=== PATIENT | female | born 1990 | race Caucasian/White ===

== ENCOUNTER → 2022-07-27 16:41 | Outpatient (CLI) | payer SELFPAY ==
--- NOTE | 2022-07-27 16:46 | DI.US.S_ITS ---
PROCEDURE: US RENAL COMPLETE INDICATIONS: RIGHT FLANK PAIN TECHNIQUE: Real-time scanning was performed of the kidneys and bladder, with image documentation. COMPARISON: None. FINDINGS: Kidneys: Kidneys are normal in size. Right kidney measures 11.3 cm long; left kidney measures 11.5 cm long. Right renal cortical thickness is 1.0 cm; left renal cortical thickness is 1.0 cm. Renal cortical echotexture is normal. No hydronephrosis or nephrolithiasis. No suspicious solid mass lesions. Bladder: Pre-void bladder volume is 117 mL. Post-void residual is 0 mL. Pre-void images demonstrate no intraluminal masses or stones. On pre-void images, bilateral ureteral jets are noted with color Doppler interrogation. (Of note, ureteral jets may not be detectable in up to 25% of cases due to insufficient differences in specific gravity between ureteral and bladder urine). Miscellaneous: No free pelvic fluid. IMPRESSION: Unremarkable ultrasound examination of bilateral kidneys and urinary bladder. Dictated by: Sanchez Turk M.D. on 07/28/2022 at 8:12 Approved by: Sanchez Turk M.D. on 07/28/2022 at 8:14
== END ==
PROVIDERS: Referring Provider Physician Assistant Medical; Visit Provider Physician Assistant Medical
DX: N20.0 Calculus of kidney (principal)
CPT/HCPCS: 76770

== ENCOUNTER → 2022-09-09 13:49 | Outpatient (CLI) | payer SELFPAY ==
--- NOTE | 2022-09-09 | DI.CT.S_ITS ---
PROCEDURE: CT ABDOMEN PELVIS WO CON INDICATIONS: CALCULUS OF KIDNEY/ABDOMINAL PAIN TECHNIQUE: Axial sections were acquired from the lung bases to the pubic symphysis. Coronal and sagittal reformats were performed. For radiation dose reduction, the following was used: automated exposure control, adjustment of mA and/or kV according to patient size. COMPARISON: [facility], CR, ABDOMEN 1 VIEW, 04/28/2008, 12:52. [facility], US, US RENAL COMPLETE, 07/27/2022, 16:54. [facility], CT, KIDNEY/ URETER/BLADDER, 04/28/2008, 12:49. Pelvic ultrasound, 04/28/2008. FINDINGS: Image quality: Excellent. Lung bases: Unremarkable. Heart: No significant findings. URINARY: Right Kidney: No stones or hydronephrosis. Right Ureter: No hydroureter. Left Kidney: No stones or hydronephrosis. Left Ureter: No hydroureter. Bladder: Normal wall thickness. No stones. ABDOMEN: Liver: Unremarkable. Gallbladder: Unremarkable. Biliary ducts: Unremarkable. Pancreas: Unremarkable. Spleen: Unremarkable. Adrenal Glands: Unremarkable. Stomach and Bowel: Stomach, small bowel loops, and colon are unremarkable. Peritoneum: No abnormal intraperitoneal fluid. No free air. Ventral Wall: No hernia. Abdominal Nodes: No enlarged retroperitoneal or mesenteric lymph nodes. Vessels: Aorta and inferior vena cava are normal in size. PELVIS: Pelvic Organs: There is a 3.9 x 4.1 x 3.8 cm cystic mass in the pelvis posterior to uterus at midline. Pelvic Nodes: Unremarkable. Miscellaneous: No inguinal hernias are seen. Bones: Unremarkable. IMPRESSION: 1. No discrete renal stones or ureteral stones. No hydronephrosis. 2. A 3.9 x 14.1 x 3.8 cm cystic mass posterior to uterus at midline. Differential diagnoses are a large ovarian cyst, paraovarian cyst, seroma and less likely an abscess. Recommend pelvic ultrasound for follow-up evaluation. Dictated by: Sara Soliman M.D. on 09/09/2022 at 16:47 Approved by: Sara Soliman M.D. on 09/09/2022 at 16:53
== END ==
PROVIDERS: Referring Provider Physician Assistant Medical; Visit Provider Physician Assistant Medical
DX: N20.0 Calculus of kidney (principal); R10.9 Unspecified abdominal pain; N94.89 Other specified conditions associated with female genital organs and menstrual cycle
CPT/HCPCS: 74176

== ENCOUNTER → 2022-10-25 12:24 | Outpatient (CLI) | payer OTHER, SELFPAY ==
--- NOTE | 2022-10-25 | DI.US.S_ITS ---
PROCEDURE: US PELVIC COMPLETE INDICATIONS: Unspecified ovarian cyst, unspecified side TECHNIQUE: Real-time scanning was performed of the pelvic organs, with image documentation. Additional endovaginal scanning was necessary due to incomplete visualization of the adnexal and endometrial structures by transabdominal scanning. COMPARISON: [facility], CT, CT ABDOMEN PELVIS WO CON, 09/09/2022, 14:02. [facility], US, PELVIC COMPLETE, 04/28/2008, 12:24. FINDINGS: Uterus: Uterus is anteverted and normal in size at 7.7 x 5.5 x 3.5 cm. The myometrium is heterogeneous. The endometrium measures 7 mm combined thickness. Left anterior intramural fibroid measuring 0.7 x 0.6 x 0.5 cm. Small nabothian cysts. Ovaries: The right ovary measures 6.2 x 3.6 x 2.2 cm, with a calculated ovarian volume of 26 cc. The left ovary measures 3.4 x 2.2 x 2.2 cm, with a calculated ovarian volume of 9 cc. Blood flow seen in both ovaries. The ovaries have a normal sonographic appearance. Less than 12 follicles can be seen in each ovary. No adnexal masses are seen. Right ovarian cyst measuring 4.4 x 4.2 x 2.8 cm. Probable internal debris. No mural nodule. No internal blood flow within the cyst. Other: No pathologic free abdominal or pelvic fluid. Trace fluid adjacent to the right ovary. IMPRESSION: 1. Right ovarian cyst measuring 4.4 cm with in terminal debris. This could represent a hemorrhagic cyst. -Recommend follow-up pelvic ultrasound in 6-12 weeks. 2. Endometrium measures 7 mm. Small intramural fibroid. We strive to produce accurate, complete, and clear reports of imaging services. To assist us in improving patient care, this report was composed using standard report templates and voice recognition software. Therefore, it may contain abnormal punctuation, insertions and/or omissions. Occasional wrong-word or sound-alike substitutions may occur. Though we review the report and make efforts to correct it, we do recommend that the report be read carefully in proper context to recognize any text inaccuracies. Dictated by: Hansel Painter M.D. on 10/25/2022 at 14:25 Approved by: Hansel Painter M.D. on 10/25/2022 at 14:32
== END ==
PROVIDERS: PCP Physician Assistant Medical; Referring Provider Physician Assistant Medical; Visit Provider Physician Assistant Medical
DX: N83.201 Unspecified ovarian cyst, right side (principal); D25.1 Intramural leiomyoma of uterus
CPT/HCPCS: 76830; 76856